=== PATIENT | male | born 1980 | race Caucasian/White ===

== ENCOUNTER 2019-09-06 17:26 | Emergency (ER) | payer SELFPAY ==
--- NOTE | 2019-09-06 18:39 | CT ---
EXAM: CT Thoracic Spine WO Con PROVIDED CLINICAL HISTORY: Injury to low back after scaffolding collapsed. Fall from height of 8 feet. Low back pain. COMPARISON: None FINDINGS: There is a developmental midline defect in the posterior elements of the T1 vertebral body. There are mild scattered degenerative changes in the thoracic spine. The vertebral body heights are within normal limits. No fracture or subluxation is seen involving the thoracic spine. There is mild posterior osteophyte formation of the T11-12 level resulting in very slight effacement of the anterior aspect of the ventral subarachnoid space. However, there is no significant central canal narrowing at any level. Neural foramina appear patent at all levels. The paravertebral soft tissues have a normal appearance. The limited visualized medial lung zones have a normal CT appearance. IMPRESSION: Mild scattered degenerative changes in the thoracic spine greatest involving the lower thoracic spine , but no fracture or subluxation is visualized.
--- NOTE | 2019-09-06 18:43 | CT ---
CT lumbar spine without contrast: HISTORY: Low back pain and headache after scaffolding collapsed beneath patient, and patient fell from a heigh t of 8 feet. Injury after fall. COMPARISON: No prior CT exams of the lumbar spine available FINDINGS: The limited visualized retroperitoneal structures demonstrate a normal nonenhanced CT appearance. No fracture or subluxation is seen involving the lumbar spine. Paravertebral soft tissues have a norm al nonenhanced CT appearance. Scattered mild osteophytes are seen anteriorly involving the lumbar spine. L1-2: No significant central canal or neural foraminal narrowing is seen. L2-3: No significant central canal or neural foraminal narrowing is seen. L3-4: No significant central canal or neural foraminal narrowing is seen. L4-5: No significant central canal and neural foraminal narrowing is seen. L5-S1: No significant central canal or neural foraminal narrowing is seen. IMPRESSION: 1. Scattered mild degenerative changes lumbar spine, but no fracture or subluxation is seen.
== END 2019-09-06 19:16 | disposition home or self-care (01) ==
LOC: ERS 17:26
DX: M54.5 Low back pain (principal); F31.9 Bipolar disorder, unspecified; Z87.891 Personal history of nicotine dependence
CPT/HCPCS: 72128; 72131

== ENCOUNTER 2021-03-16 15:26 | Outpatient (CLI) | payer OTHER | END 2021-03-16 15:27 | disposition home or self-care (01) | LOC: BICRAD 15:26 | PROVIDERS: ATTEND Specialist | DX: M25.562 Pain in left knee (principal) ==

== ENCOUNTER 2022-06-08 12:52 | Emergency (ER) | payer OTHER, SELFPAY ==
[2022-06-08] MEDS ORDERED: Ketorolac Tromethamine 30 MG/ML VIAL ONE (14:36)
== END 2022-06-08 14:53 | disposition home or self-care (01) ==
LOC: ERS 12:52
DX: S39.012A Strain of muscle, fascia and tendon of lower back, initial encounter (principal); K21.9 Gastro-esophageal reflux disease without esophagitis; X50.0XXA Overexertion from strenuous movement or load, initial encounter
CPT/HCPCS: 96372; 99283; J1885

== ENCOUNTER 2023-10-10 01:21 | Emergency (ER) | payer BC, SELFPAY ==
[2023-10-10] MEDS ORDERED: Ondansetron PF 4 MG/2 ML Vial ONE (01:39)
[2023-10-10] MEDS ORDERED: Morphine 4 MG/ML VIAL ONE (01:39)
[2023-10-10] MEDS ORDERED: Pantoprazole 40 MG VIAL ONE (01:41)
[2023-10-10 01:59] LABS: #Basophils 0.1 thou/uL (0.0-0.2); #Eosinphils 0.3 thou/uL (0.0-0.7); #Neutrophils 6.6 thou/uL (1.40-6.50); %Basophils 0.7 % (0.0-1.0); %Eosinophils 2.7 % (0.0-10.0); %Lymphocytes 27.8 % (21.0-51.0); %Monocytes 9.3 % (0.0-10.0); %Neutrophils 58.9 % (42.0-75.0); Hematocrit 40.8 % (42.0-52.0); Hemoglobin 15.1 g/dL (14.0-18.0); Mean Corpuscular Hemoglobin 30.9 pg (27.0-31.0); Mean Corpuscular Volume 83.6 fl (78.0-98.0); Mean Platelet Volume 9.1 fL (7.4-10.4); Platelet Count 219 10x3/uL (130-400); RBC Distribution Width 12.5 % (11.5-14.5); Red Blood Cell (RBC) Count 4.88 mill/uL (4.70-6.10); White Blood Cell (WBC) Count 11.1 10x3/uL (4.8-10.8)
[2023-10-10 02:07] LABS: Bacteria/HPF None Seen HPF (None Seen); Bilirubin Negative (Negative); Blood, Urine Negative (Negative); CAUTI Indications for Culture Pelvic or flank pain; Clarity Clear (Clear); Glucose, Urine (Dipstick) >=1000 mg/dL (Negative); Ketone, Urine Negative (Negative); Leukocyte Negative Leu/uL (Negative); Nitrite Negative (Negative); Protein, Urine (Dipstick) 10 mg/dL (Neg-Trace); RBC/HPF 0-3 HPF (0-3); Specific Gravity, Urine 1.027 (1.002-1.036); Squamous Epithelial None Seen HPF (0-3); Urobilinogen Normal mg/dL (Less than 2); WBC/HPF 0-3 HPF (0-3); pH, Urine 5.5 (5.0-9.0)
[2023-10-10 02:12] LABS: Urine Culture Reflex No No
[2023-10-10 02:23] LABS: Troponin I Less than 0.010 ng/mL (< 0.028)
[2023-10-10 03:22] LABS: ALT (SGPT) 75 U/L (8-55); AST (SGOT) 40 U/L (5-34); Albumin 4.4 g/dL (3.5-5.0); Alkaline Phosphatase 103 U/L (40-110); Anion Gap 19 mmol/L (10-20); BUN (Urea Nitrogen) 15 mg/dL (8.9-20.6); Bilirubin, Total 0.4 mg/dL (0.2-1.2); CK (CPK) 127 U/L (30-200); Calc. Creatinine Clearance 0 mL/min (70-130); Calcium 9.6 mg/dL (7.8-10.44); Carbon Dioxide 21 mmol/L (22-29); Chloride 102 mmol/L (98-107); Estimated GFR 83; Globulin 3.6 g/dL (2.4-3.5); Glucose 258 mg/dL (70-105); Lipase 26 U/L (8-78); Potassium 4.1 mmol/L (3.5-5.1); Sodium 138 mmol/L (136-145)
== END 2023-10-10 04:42 | disposition home or self-care (01) ==
LOC: ERS 01:21
DX: R10.13 Epigastric pain (principal); K21.9 Gastro-esophageal reflux disease without esophagitis; Z79.899 Other long term (current) drug therapy
CPT/HCPCS: 74177; 76705; 80053; 81001; 82550; 83690; 84484; 85025; 93005; 96374; 96375; C9113; J2270; J2405